=== PATIENT | female | born 1955 | race Caucasian/White ===

== ENCOUNTER 2020-12-09 08:53 | Emergency (ER) | payer SELFPAY ==
[2020-12-09] MEDS ORDERED: Calcium Chloride 1 GM/10 ML Abboject SYRINGE ONE (08:54)
[2020-12-09] MEDS ORDERED: EPINEPHrine 1 MG/10 ML Abboject SYRINGE ONE ×2 (08:54→09:00)
[2020-12-09] MEDS ORDERED: Sodium Bicarb 50 MEQ/50 ML Abboject 8.4% SYRINGE ONE (08:54)
[2020-12-09] MEDS ORDERED: Atropine Sulfate 1 mg/10 ml Syringe ONE (08:54)
[2020-12-09] MEDS ORDERED: EPINEPHrine 1 MG/ML VIAL ONE (09:00)
[2020-12-09 09:26] LABS: Bilirubin Negative (Negative); Blood, Urine Negative (Negative); Clarity Clear (Clear); Glucose, Urine (Dipstick) Normal (Negative); Ketone, Urine Negative (Negative); Leukocyte Negative Leu/uL (Negative); Nitrite Negative (Negative); Protein, Urine (Dipstick) 20 mg/dL (Neg-Trace); Specific Gravity, Urine 1.025 (1.002-1.036); Urobilinogen Normal mg/dL (Less than 2); pH, Urine 5.5 (5.0-9.0)
[2020-12-09 09:48] LABS: ALT (SGPT) 141 U/L (8-55); AST (SGOT) 135 U/L (5-34); Albumin 2.7 g/dL (3.4-4.8); Alkaline Phosphatase 79 U/L (40-110); Anion Gap 30 mmol/L (10-20); BUN (Urea Nitrogen) 21 mg/dL (9.8-20.1); Bilirubin, Total 0.6 mg/dL (0.2-1.2); Calc. Creatinine Clearance 0 mL/min (70-130); Calcium 8.9 mg/dL (7.8-10.44); Chloride 103 mmol/L (98-107); Globulin 2.5 g/dL (2.4-3.5); Glucose 357 mg/dL (80-115); Potassium 4.7 mmol/L (3.5-5.1); Protein, Total 5.2 g/dL (5.8-8.1); Sodium 137 mmol/L (136-145)
[2020-12-09 09:50] LABS: INR-International Normal Ratio 1.7; Prothrombin Time 19.7 sec (12.0-14.7)
[2020-12-09 09:51] LABS: Carbon Dioxide 9 mmol/L (23-31)
[2020-12-09 09:52] LABS: PTT 61.4 sec (22.9-36.1)
[2020-12-09 10:13] LABS: D-Dimer Test Greater than 20.00 *mcg/mL (0.27-0.43)
[2020-12-09 10:15] LABS: CKMB 4.6 ng/mL (0-6.6)
[2020-12-09 10:20] LABS: Hemoglobin 12.8 g/dL (12.0-16.0); Mean Corpuscular HGB CONC 31.5 g/dL (32.0-36.0); Mean Corpuscular Hemoglobin 30.9 pg (27.0-31.0); Mean Platelet Volume 7.7 fL (7.4-10.4); Platelet Count 72 thou/uL (130-400); RBC Distribution Width 12.8 % (11.5-14.5); Red Blood Cell (RBC) Count 4.14 mill/uL (4.20-5.40); White Blood Cell (WBC) Count 16.2 thou/uL (4.8-10.8)
[2020-12-09 10:22] LABS: Band 4 % (5-11); Lymphocytes 46 % (21-51); MDiff Complete? YES; Monocytes 5 % (0-10); Neutrophil 45 % (42-75); Platelet Morphology Comment Appears Decreased; Polychromasia SLIGHT = 2-3 cells (100X) (0-2/hpf)
[2020-12-09 11:05] LABS: SARS-CoV-2 NAA Rapid Test Not Detected (NotDetected)
== END 2020-12-09 09:26 | disposition expired ==
LOC: ERS 08:53
DX: I46.9 Cardiac arrest, cause unspecified (principal); J96.90 Respiratory failure, unspecified, unspecified whether with hypoxia or hypercapnia; Z20.822 Contact with and (suspected) exposure to COVID-19
CPT/HCPCS: 31500; 36556; 43752; 51702; 80053; 81003; 82553; 83880; 84484; 85025; 85379; 85610; 85730; 87086; 93005; 94002; 96374; 96375; 96376; 99292; J0171; J0461; U0002; U0005